=== PATIENT | male | born 1970 | race Caucasian/White ===

== ENCOUNTER 2016-11-03 07:11 | Emergency (ER) | payer OTHER, MEDICARE ==
[~2016-11-03] VITALS: Ht 160 cm; Wt 71.7 kg
[~2016-11-03 07:11] MED LIST: ALPRAZOLAM0.5 M3 PO; ALPRAZOLAM0.5 M4 PO; ALPRAZOLAM1 MG PO; AMLODIPINE BESYL5 M1 PO; ATIVAN1 MG PO; B12-METHYL1000 MCG PO; CELEBREX200 M1 PO; CEPHALEXIN500 M3 PO; CIPRO 500MG (E500 MG PO; CIPROFLOXACIN IV; CLEOCIN HCL300 MG PO; CLONIDINE0.1 MG PO; DAILY MULTIPLE1 EACH PO; DIAZEPAM5 M1 PO; DILAUDID2 MG PO; FAMOTIDINE20 MG PO; FLOMAX(MONOGRA0.4 MG PO; FOLIC ACID 1 MG PO; FOLIC ACID1 M1 PO; GABAPENTIN300 M2 PO; HYDRODIURIL 112.5 M1 PO; HYDRODIURIL 2525 MG PO; HYDROXYZINE50 MG PO; K-TAB ER10 MEQ PO; KLOR-CON M1010 ME1; MAG-OX 400400 MG PO; MAGNESIUM OXID400 M1 PO; MAGNESIUM500 M2 PO; MEDROL4 M2 PO; MULTIVITAMIN1 TAB PO; NAPRELAN 500500 MG PO; NAPROSYN 500 M500 MG PO; NICODERM C21 MG/24 H TOP; OMEPRAZOLE40 MG PO; ONDANSETRON HYDR4 MG PO; OXYCODONE HCL15 M1 PO; OXYCODONE HCL20 M2 PO; OXYCODONE HYDRO15 MG PO; OXYCODONE5 M1 PO; OXYCONTIN40 M1 PO; Orajel TOP; PEPCID20 MG PO; PERCOCET 325 MG1 TA2 PO; PHARMASSURE MA500 MG PO; PHENERGAN25 M1 PO; PRILOSEC 20MG C20 MG PO; ROXICODONE15 M1 PO; SKELAXIN800 MG PO; TORADOL10 MG PO; TRAMADOL50 MG PO; TRAZODONE50 MG PO; TUMS200 MG PO; Theragran Vitamins PO; VALIUM10 M1 PO; VITAMIN B PO; VITAMIN B-1100 MG PO; VITAMIN B-12100 MC1; VITAMIN B-121000 MC3 PO; XANAX0.5 M1 PO; ZOFRAN 4 MG TABL4 MG PO; ZOFRAN ODT4 MG PO; ZOFRAN4 M1 SL; ZOSYN 4.54.5 GM/100 IV
--- NOTE | 2016-11-03 08:00 | ED GI/GU/ABDOMINAL COMPLAINT ---
History of Present Illness General Chief Complaint: Abdominal Pain/Flank Pain Stated Complaint: L FLANK PAIN Source: patient, old records Exam Limitations: no limitations Vital Signs & Intake/Output Vital Signs & Intake/Output Vital Signs Date Time Temp Pulse Resp B/P Pulse O2 O2 Flow FiO2 Ox Delivery Rate 11/03 1011 97.9 74 18 119/80 95 11/03 0930 Room Air Room Air ED Intake and Output 11/04 0000 11/03 1200 Intake Total Output Total Balance Patient 158 lb Weight Allergies Coded Allergies: venom-honey bee (BEE VENOM (HONEY BEE)) (ANAPHYLAXIS 04/12/16) Reconcile Medications Alprazolam (Xanax) 0.5 MG TABLET 1 TAB PO BIDP PRN ANXIETY (Reported) Alprazolam 0.5 MG TABLET 1 TAB PO BID PRN ANXIETY (Reported) Amlodipine Besylate 5 MG TABLET 1 TAB PO DAILY BLOOD PRESSURE Calcium Carbonate (TUMS) 200 MG TAB.CHEW 2 TAB PO Q4 GERD (Reported) [CIPROFLOXACIN] 400 MG IV.SOLN 400 MG IV Q12H INFECTION START DATE 04/20, FOR A TOTAL OF 8 WEEKS Cyclobenzaprine HCl 10 MG TABLET 1 TAB PO TID PRN SPASM Diazepam 5 MG TABLET 1 TAB PO Q8H PRN MUSCLE SPASMS (Reported) Folic Acid 1 MG TABLET 1 TAB PO DAILY SUPPLEMENT Gabapentin 300 MG CAPSULE 1 CAP PO AD UNKNOWN (Reported) Magnesium Oxide 400 MG TABLET 1 TAB PO DAILY HYPOMAGNESEMIA Methylcobalamin ([id number]) 1,000 MCG CAP 1 CAP PO DAILY SUPPLEMENT Multivitamin (Daily Multiple Vitamin) 1 EACH TABLET 1 TAB PO DAILY HEALTH SUPPLEMENT (Reported) Oxycodone HCl 15 MG TABLET 1-2 TAB PO Q4P pain Xapjimjxzrqc-Hwuj-Edadlenc,Iso (Zosyn 4.5 Gm/100 Ml Galaxy Bag) 4.5 GM/100 ML FROZ.PIGGY 4.5 GM IV Q6H INFECTION Potassium Chloride (K-Tab ER) 10 MEQ TABLET.ER 1 TAB PO DAILY SUPPLEMENT Thiamine HCl (Vitamin B-1) 100 MG TABLET 1 TAB PO DAILY SUPPLEMENT Triage Note: TRIAGE: 45 Y/O MALE PRESENTS C/O 04/07 LEFT SIDED KIDNEY PAIN, "LIKE SOMEONE KICKED ME". "I'M INCONTINENT AFTER MY SURGERY. I WONDER IF I HAVE KIDNEY INFECTION." Triage Nurses Notes Reviewed? yes Onset: Abrupt Duration: day(s): (2) Timing: multiple episodes today Quality/Severity: sharpness, severe Severity Numbers: 10 Location: left flank Radiation: no radiation HPI: 45 year-old male with history of back fusion in February and March 2016 presents to ER chief complaint of severe left-sided flank pain started 1-1/2 days ago. He denies any trauma or fever. Some nausea and vomiting. He states he thinks there is something wrong with his kidney. Patient is incontinent after his back surgeries. He wears a diaper secondary to incontinence. Denies any blood in the urine. Denies any change in his stool. Today he took his prescription for oxycodone without any relief this morning. Past History Travel History Traveled to [place] past 21 day No Medical History Any Pertinent Medical History? see below for history Neurological: NONE EENT: NONE Cardiovascular: hypertension, ATYPICAL CHEST PAIN Respiratory: NONE Gastrointestinal: pancreatitis, gastritis Hepatic: NONE Renal: nephrolithiasis Musculoskeletal: chronic back pain, disk herniation Psychiatric: alcohol dependence, anxiety, PAIN MANAGEMENT PAIENT. Endocrine: NONE Blood Disorders: NONE Cancer(s): NONE DESIGN MANAGER/Reproductive: NONE History of MRSA: No History of VRE: No History of CDIFF: No Pneumonia Vaccine: 12/11/11 Surgical History Surgical History: BACK SURGERIES (2006, 2007) APENDECTOMY A CHILD Psychosocial History Who do you live with Spouse Services at Home None What is your primary language Gabonese Tobacco Use: Current Daily Use Daily Tobacco Use Amount/Type: => 5 Cigarettes daily ETOH Use: occasional use Illicit Drug Use: marijuana Family History Family History, If Any: FATHER (strokes X2used to be heavy drinker, now stopped). MOTHER (myocardial infarction). . BROTHER (heavy drinker). Hx Contributory? No Review of Systems Review of Systems Constitutional: Denies: chills, fever. EENTM: Reports: no symptoms. Respiratory: Denies: cough, short of breath. Cardiovascular: Denies: chest pain. GI: Reports: nausea, vomiting. Genitourinary: Reports: see HPI (incontinence). Musculoskeletal: Reports: back pain. Skin: Reports: no symptoms. Neurological/Psychological: Reports: no symptoms. Hematologic/Endocrine: Reports: polyuria. Denies: bruising, bleeding, polydipsia. Immunologic/Allergic: Denies: splenectomy. All Other Systems: Reviewed and Negative Physical Exam Physical Exam General Appearance: well developed/nourished, alert, awake, anxious, mild distress, moderate distress Head: atraumatic, normal appearance Eyes: Bilateral: normal appearance, PERRL, EOMI. Ears, Nose, Throat, Mouth: hearing grossly normal, moist mucous membrane Neck: normal inspection, supple, full range of motion Respiratory: normal breath sounds, chest non-tender, no respiratory distress Cardiovascular: regular rate/rhythm Peripheral Pulses: 2+ radial (R), 2+ radial (L) Gastrointestinal: normal bowel sounds, soft, non-tender Male Genitals: normal genitalia Back: CVA tenderness (L) Extremities: normal range of motion Neurologic/Psych: awake, alert, oriented x 3, anxious Skin: intact, normal color, warm/dry Core Measures ACS in differential dx? No Severe Sepsis Present: No Septic Shock Present: No Progress Differential Diagnosis: pyelonephritis, ureterolithiasis, UTI/pyelo, SCIATICA, FUSION, LUMBAR RADICULOPATHY Plan of Care: Laboratory Tests 11/03/16 0937: Urine Opiates Screen > 4000.00 H, Methadone Screen < 40, Barbiturate Screen < 60, Ur Phencyclidine Scrn < 6.00, Amphetamines Screen < 100, U Benzodiazepines Scrn > 800 H, Urine Cocaine Screen < 50, Urine Cannabis Screen < 5.00, Urinalysis MOD H, Urine Color YEL, Urine Clarity HAZY H, Urine pH 6.0, Ur Specific [place] >= 1.030, Urine Protein TRACE H, Urine Ketones NEG, Urine Nitrite NEG, Urine Bilirubin NEG, Urine Urobilinogen 0.2, Ur Leukocyte Esterase NEG, Ur Microscopic SEDIMENT EXAMINED, Urine RBC RARE, Urine WBC 3-5 H, Ur Epithelial Cells MOD H, Urine Bacteria FEW H, Hyaline Casts 1-3 H, Granular Casts RARE H, Urine Mucus FEW, Urine Hemoglobin NEG, Urine Glucose NEG 11/03/16 0825: Anion Gap 14, Estimated GFR > 60, BUN/Creatinine Ratio 10.8, Glucose 95, Calcium 9.4, Total Bilirubin 0.7, AST 86 H, ALT 64, Alkaline Phosphatase 123, Total Protein 7.8, Albumin 4.5, Globulin 3.3, Albumin/Globulin Ratio 1.4, CBC w Diff NO MAN DIFF REQ, RBC 4.31 L, MCV 98.0 H, MCH 33.2 H, RDW 14.5, MPV 7.8, Gran % 58.8, Lymphocytes % 27.1, Monocytes % 11.7 H, Eosinophils % 2.1, Basophils % 0.3, Absolute Granulocytes 4.6, Absolute Lymphocytes 2.1, Absolute Monocytes 0.9 H, Absolute Eosinophils 0.2, Absolute Basophils 0, PUBS MCHC 33.9 LABS, CT, TORADODL, VALIUM IV NO RELIEF WITH TORADOL. IV MORPHINE GIVEN. CT RESULTS PENDING. CT DOES NOT REVEAL ANY ACUTE PATHOLOGY. PATIENT REQUESTING MORE PAIN MEDICATIONS AND TOLD HE WILL HAVE TO FOLLOW UP WITH HIS PAIN MANAGEMENT. (HARRISON ESCOBEDO,BHASKAR) Diagnostic Imaging: Viewed by Me: CT Scan. Discussed w/RAD: CT Scan. Radiology Impression: PATIENT: JONATHAN DOUGHERTY PRESENT AGE : 45 PATIENT ACCOUNT NO: [id number] : 68 LOCATION: [facility] ORDERING PHYSICIAN: BHASKAR TERRY MD SERVICE DATE: 11/03/16 EXAM TYPE: CAT - CT ABD & PELVIS W/O IV CONTRAS EXAMINATION: CT ABDOMEN AND PELVIS WITHOUT CONTRAST CLINICAL INFORMATION: Severe left flank pain. COMPARISON: CT dated 05/30/2015 and MRI dated 07/04/2016 TECHNIQUE: Multidetector volumetric imaging was performed from the superior aspect of the liver through the pubic symphysis. Sagittal and coronal reformatted images were obtained on the technologist's workstation. DLP: 308 mGy-cm FINDINGS: LUNG BASES: The visualized lung bases are unremarkable. LIVER, GALLBLADDER, AND BILIARY TREE: Relative hypoattenuation of the hepatic parenchyma relative to the spleen is consistent with steatosis. No focal hepatic lesions are identified. Liver is normal in size. No biliary ductal dilatation. The gallbladder is unremarkable with no evidence of radiopaque gallstones, gallbladder wall thickening, or obvious pericholecystic inflammatory changes. PANCREAS: Unremarkable. SPLEEN: Unremarkable. ADRENAL GLANDS: Unremarkable. KIDNEYS AND URETERS: The kidneys are normal in size, shape, and attenuation. No hydronephrosis, hydroureter, or calculi seen. There is mild chronic bilateral perinephric stranding. Ureters are unremarkable. No ureteral calculi. BLADDER: Decompressed and normal. GASTROINTESTINAL TRACT: Stomach, small bowel, and colon are normal in caliber. No bowel wall thickening. Appendix is not seen, there are no inflammatory changes are identified in the right lower quadrant suggest acute appendicitis. Large peritoneal free fluid or free air. ABDOMINAL WALL: No significant hernia is appreciated. LYMPH NODES: Normal. VASCULAR: Unremarkable. PELVIC VISCERA: The prostate and seminal vesicles are unremarkable. OSSEOUS STRUCTURES: Postsurgical changes of posterior osseous fusion and decompression are evident at L4-L5. Ill-defined, heterogeneous soft tissue is present throughout the paraspinal region posteriorly in the region of the previously seen abscess. Sensitivity for residual or recurrent collections in this region is limited on this CT. There is osseous fusion of the L5-S1 vertebral bodies as well as osseous fusion of the transverse processes of L4-S1. Degenerative disc disease is present in the thoracolumbar spine with retrolisthesis of L3 on L4 by 2 mm. IMPRESSION: 1. No acute intra-abdominal or intrapelvic abnormalities. No nephrolithiasis or hydronephrosis. 2. Hepatic steatosis. 3. Chronic postsurgical changes of prior posterior decompression and fusion at L4- S1 with residual heterogeneous soft tissue density within the posterior epidural and paraspinal soft tissues in this region. Sensitivity for residual or recurrent collections is limited on the CT. DICTATED BY: LASHON QUARLES MD DATE/TIME DICTATED:11/03/16850 CHIEF CLOTH FINISHING RANGE OPERATOR:GINA DATE/TIME TRANSCRIBED:11/03/16850 CONFIDENTIAL, DO NOT COPY WITHOUT APPROPRIATE AUTHORIZATION. <Electronically signed in Other Vendor System> SIGNED BY: LASHON QUARLES MD 11/03/16 0911 Initial ED EKG: none Departure Departure Time of Disposition: 1016 Disposition: HOME OR SELF CARE Condition: Stable Clinical Impression Primary Impression: Left flank pain Referrals: OLGA ESCOBEDO,SIERRA (PCP/Family) KYLER BACA MD Additional Instructions: Please follow up with primary care doctor in the office. Continue your perception pain medications. Departure Forms: Customer Survey General Discharge Information Prescriptions: Current Visit Scripts Cyclobenzaprine HCl 1 TAB PO TID PRN SPASM #20 TAB
[2016-11-03 08:42] LABS: ABSOLUTE BASOPHIL COUNT 0 /CUMM (0.0-0.2); ABSOLUTE EOSINOPHIL COUNT 0.2 /CUMM (0.0-0.7); ABSOLUTE GRANULOCYTE CT 4.6 /CUMM (1.4-6.5); ABSOLUTE LYMPH COUNT 2.1 /CUMM (1.2-3.4); ABSOLUTE MONOCYTE COUNT 0.9 /CUMM (0.10-0.60); BASOPHIL % 0.3 % (0.0-2.0); EOSINOPHIL % 2.1 % (0-5); GRANULOCYTE % 58.8 % (42.2-75.2); HEMATOCRIT 42.3 % (42-52); MEAN CORPUSCULAR HGB 33.2 PG (27.0-31.0); MEAN CORPUSCULAR HGB CONC 33.9 G/DL (33.0-37.0); MEAN PLATELET VOLUME 7.8 FL (7.4-10.4); PLATELET COUNT 155 /CUMM (130-400); RBC DISTRIBUTION WIDTH 14.5 % (11.5-14.5); RED BLOOD CELL CT 4.31 /CUMM (4.70-6.10); WHITE BLOOD CELL COUNT 7.8 /CUMM (4.8-10.8)
--- NOTE | 2016-11-03 09:11 | CT SCAN REPORT ---
EXAMINATION: CT ABDOMEN AND PELVIS WITHOUT CONTRAST CLINICAL INFORMATION: Severe left flank pain. COMPARISON: CT dated 05/30/2015 and MRI dated 07/04/2016 TECHNIQUE: Multidetector volumetric imaging was performed from the superior aspect of the liver through the pubic symphysis. Sagittal and coronal reformatted images were obtained on the technologist's workstation. DLP: 308 mGy-cm FINDINGS: LUNG BASES: The visualized lung bases are unremarkable. LIVER, GALLBLADDER, AND BILIARY TREE: Relative hypoattenuation of the hepatic parenchyma relative to the spleen is consistent with steatosis. No focal hepatic lesions are identified. Liver is normal in size. No biliary ductal dilatation. The gallbladder is unremarkable with no evidence of radiopaque gallstones, gallbladder wall thickening, or obvious pericholecystic inflammatory changes. PANCREAS: Unremarkable. SPLEEN: Unremarkable. ADRENAL GLANDS: Unremarkable. KIDNEYS AND URETERS: The kidneys are normal in size, shape, and attenuation. No hydronephrosis, hydroureter, or calculi seen. There is mild chronic bilateral perinephric stranding. Ureters are unremarkable. No ureteral calculi. BLADDER: Decompressed and normal. GASTROINTESTINAL TRACT: Stomach, small bowel, and colon are normal in caliber. No bowel wall thickening. Appendix is not seen, there are no inflammatory changes are identified in the right lower quadrant suggest acute appendicitis. Large peritoneal free fluid or free air. ABDOMINAL WALL: No significant hernia is appreciated. LYMPH NODES: Normal. VASCULAR: Unremarkable. PELVIC VISCERA: The prostate and seminal vesicles are unremarkable. OSSEOUS STRUCTURES: Postsurgical changes of posterior osseous fusion and decompression are evident at L4-L5. Ill-defined, heterogeneous soft tissue is present throughout the paraspinal region posteriorly in the region of the previously seen abscess. Sensitivity for residual or recurrent collections in this region is limited on this CT. There is osseous fusion of the L5-S1 vertebral bodies as well as osseous fusion of the transverse processes of L4-S1. Degenerative disc disease is present in the thoracolumbar spine with retrolisthesis of L3 on L4 by 2 mm. IMPRESSION: 1. No acute intra-abdominal or intrapelvic abnormalities. No nephrolithiasis or hydronephrosis. 2. Hepatic steatosis. 3. Chronic postsurgical changes of prior posterior decompression and fusion at L4- S1 with residual heterogeneous soft tissue density within the posterior epidural and paraspinal soft tissues in this region. Sensitivity for residual or recurrent collections is limited on the CT.
[2016-11-03 10:11] VITALS: BP 119/80
[2016-11-03] MEDS ORDERED: CYCLOBENZAPRINE10 M1 PO (10:30)
== END 2016-11-03 10:36 ==
LOC: ERH 07:11
PROVIDERS: Emergency Medicine
DX: R10.32 Left lower quadrant pain (principal)
CPT/HCPCS: 74176; 80307; 81001; 96374; 96375; J1885; J3360

== ENCOUNTER 2017-01-26 14:18 | Emergency (ER) | payer OTHER, MEDICARE ==
[~2017-01-26] VITALS: Ht 157.5 cm; Wt 68.9 kg
[~2017-01-26 14:18] MED LIST changes: +CYCLOBENZAPRINE10 M1 PO
[2017-01-26 14:24] VITALS: BP 138/77
--- NOTE | 2017-01-26 15:18 | ED GENERAL ADULT ---
History of Present Illness General Chief Complaint: Abdominal Pain/Flank Pain Stated Complaint: SHARP PAIN RT SIDE, WEAKNESS Source: patient, old records Exam Limitations: no limitations Vital Signs & Intake/Output Vital Signs & Intake/Output Vital Signs Date Time Temp Pulse Resp B/P B/P Pulse O2 O2 Flow FiO2 Mean Ox Delivery Rate 01/26 1553 99 Room Air 01/26 1424 98.2 113 15 138/77 96 Room Air Room Air Allergies Coded Allergies: venom-honey bee (BEE VENOM (HONEY BEE)) (ANAPHYLAXIS 01/26/17) Reconcile Medications Alprazolam 0.5 MG TABLET 1 TAB PO BID PRN ANXIETY (Reported) Amlodipine Besylate 5 MG TABLET 1 TAB PO DAILY BLOOD PRESSURE Celecoxib 200 MG CAPSULE 1 CAP PO DAILY PAIN (Reported) Cyanocobalamin (Vitamin B-12) 1,000 MCG TABLET 1 TAB PO DAILY SUPPLEMENT ( Reported) Diclofenac Sodium (Voltaren) 1 % GEL..GRAM. 1 GM TOP PRN PAIN (Reported) apply to affected area(s) Folic Acid 1 MG TABLET 1 TAB PO DAILY SUPPLEMENT Magnesium Oxide (Magnesium) 400 MG CAPSULE 1 CAP PO DAILY SUPPLEMENT ( Reported) Multivitamin (Daily Multiple Vitamin) 1 EACH TABLET 1 TAB PO DAILY HEALTH SUPPLEMENT (Reported) Ondansetron (Zofran Odt) 4 MG TAB.RAPDIS 1 TAB SL TID PRN nausea Oxycodone HCl 15 MG TABLET 1-2 TAB PO Q4-6H PRN PAIN (Reported) Pantoprazole Sodium 40 MG TABLET.DR 1 TAB PO DAILY GI (Reported) Potassium Chloride (K-Tab ER) 10 MEQ TABLET.ER 1 TAB PO DAILY SUPPLEMENT Thiamine HCl (Vitamin B-1) 100 MG TABLET 1 TAB PO DAILY SUPPLEMENT Triage Note: PT TO ED FOR DIFFUSE ABD PAIN, AND LOW BACK PAIN AND R LEG PAIN THAT STARTED A COUPLE OF DAYS AGO. +NAUSEA. HOME PAIN MEDICATIONS AREN'T HELPING. LAST BM THIS AM. Triage Nurses Notes Reviewed? yes Onset: Gradual Duration: day(s): Timing: recent history Severity: moderate HPI: 46-year-old male presents to emergency department complaining of generalized abdominal pain 3 days. Patient states that for the past few days he's been feeling weak, nausea, bilious vomiting 5-6 episodes per day. The patient states that he has a history of lumbar spine surgery 02/2016 following which she had bowel and bladder incontinence with numbness of his lower back groin and legs. He takes milk of magnesia to aid in passing stool. He does not have regular bowel movements without this, last bowel movement was this morning and loose. He has also been on chronic narcotics for pain management for the past 9 years. He says his pain medications do not relieve his abdominal pain. He was seen here in October complaining of kidney stones, his CT was negative at that time. He is also been feeling hot and cold at home however did not record any temperature. He's been to several specialists for his incontinence including his previous neurosurgeon, he has an appointment with a new neurosurgeon [place] for next week. He states his urine is usually bright yellow however today there is a red color to it. (GÉNESIS JORGE PA-C) Past History Travel History Traveled to [place] past 21 day No Medical History Any Pertinent Medical History? see below for history Neurological: NONE EENT: NONE Cardiovascular: hypertension, ATYPICAL CHEST PAIN Respiratory: NONE Gastrointestinal: pancreatitis, gastritis Hepatic: NONE Renal: nephrolithiasis Musculoskeletal: chronic back pain, disk herniation Psychiatric: alcohol dependence, anxiety, PAIN MANAGEMENT PAIENT. Endocrine: NONE Blood Disorders: NONE Cancer(s): NONE MANAGER PLACEMENT/Reproductive: NONE History of MRSA: No History of VRE: No History of CDIFF: No Surgical History Surgical History: BACK SURGERIES (2006, 2007) APENDECTOMY A CHILD Psychosocial History Who do you live with Spouse Services at Home None What is your primary language Estonian Tobacco Use: Current Daily Use Daily Tobacco Use Amount/Type: => 5 Cigarettes daily ETOH Use: occasional use Illicit Drug Use: denies illicit drug use Family History Family History, If Any: FATHER (strokes X2used to be heavy drinker, now stopped). MOTHER (myocardial infarction). . BROTHER (heavy drinker). Hx Contributory? No (GÉNESIS JORGE PA-C) Review of Systems Review of Systems Constitutional: Reports: see HPI. EENTM: Reports: no symptoms. Respiratory: Reports: no symptoms. Cardiovascular: Reports: no symptoms. GI: Reports: see HPI. Genitourinary: Reports: see HPI. Musculoskeletal: Reports: see HPI. Skin: Reports: no symptoms. Neurological/Psychological: Reports: see HPI. Hematologic/Endocrine: Reports: no symptoms. Immunologic/Allergic: Reports: no symptoms. All Other Systems: Reviewed and Negative (GÉNESIS JORGE PA-C) Physical Exam Physical Exam General Appearance: well developed/nourished, no apparent distress, alert, awake Comments: Well-developed well-nourished person in no acute distress HEENT: Normal EENT exam;, EOMI, HEAD is atraumatic. Neck: Supple, normal range of motion without pain or tenderness Back: Nontender, no CVA tenderness. Full range of motion Cardiovascular: Tachycardia, no murmurs rubs or gallops, normal JVP Respiratory: No respiratory distress. Patient speaking in full complete sentences. Breath sounds clear to auscultation bilaterally: NO W/R/R Abdomen: Soft, Tenderness RUQ and LUQ, no rebound, no gaurding, nondistended, no appreciable organomegaly. Normal bowel sounds. No rebound/guarding, No appreciable enlargement of the abdominal aorta, No ascites. Extremity: No edema, full range of motion of extremities, Neuro: Alert oriented x3, motor sensory normal, There were no obvious focal neurologic abnormalities. Skin: No appreciable rash on exposed skin, skin is warm and dry. Psych: Mood and affect is normal, memory and judgment is normal. Core Measures ACS in differential dx? No CVA/TIA Diagnosis: No Severe Sepsis Present: No Septic Shock Present: No (GÉNESIS JORGE PA-C) Progress Differential Diagnoses I considered the following diagnoses in my evaluation of the patient: [ cholecystitis, pancreatitis, appendicitis, diverticulitis, SBO, gastritis] Plan of Care: Orders Procedure Date/time Status LIPASE 01/26 1526 Complete COMPREHENSIVE METABOLIC PANEL 01/26 1526 Complete CBC WITHOUT DIFFERENTIAL 01/26 1526 Complete AMYLASE 01/26 1526 Complete Laboratory Tests 01/26/17 1541: Anion Gap 19 H, Estimated GFR > 60, BUN/Creatinine Ratio 14.2, Glucose 102 H, Calcium 10.8 H, Total Bilirubin 1.2, AST 97 H, ALT 103 H, Alkaline Phosphatase 132 H, Total Protein 9.3 H, Albumin 5.6 H, Globulin 3.7, Albumin/ Globulin Ratio 1.5, Amylase 79, Lipase 414 H, CBC w Diff NO MAN DIFF REQ, RBC 4.76, MCV 99.5 H, MCH 34.2 H, RDW 13.3, MPV 8.1, Gran % 73.6, Lymphocytes % 17.6 L, Monocytes % 8.1, Eosinophils % 0.5, Basophils % 0.2, Absolute Granulocytes 10.0 H, Absolute Lymphocytes 2.4, Absolute Monocytes 1.1 H, Absolute Eosinophils 0.1, Absolute Basophils 0, PUBS MCHC 34.4 CT scan shows no acute abnormality. Low density present and liver representing possible fatty changes, patient has a history of alcoholism. Labs reveal leukocytosis, elevated lipase at 414 was elevated compared to last recording a year ago in the 80s. Additionally elevated liver enzymes. These lab findings were discussed with Dr. Adkins. 17:30 - patient was informed of CT scan results and his elevated lipase blood levels indicating probable acute pancreatitis. It was recommended that he remain in the hospital for IV fluids and further monitoring however patient wishes to return home and increase his by mouth fluid intake. He states that he had pancreatitis many years ago and was able to manage well at home with by mouth fluids. He states that IV Zofran decreased his nausea. The patient was discussed with Dr. Adkins. He will go home with a prescription for by mouth Zofran, increase his fluid intake, and return with any worsening abdominal pain, nausea, vomiting, or concerns. Upon discharge he was nontoxic appearing, in no acute distress. (ANIA HAYWARD,GÉNESIS) Diagnostic Imaging: Viewed by Me: CT Scan. Discussed w/RAD: CT Scan. Radiology Impression: PATIENT: JONATHAN DOUGHERTY PRESENT AGE : 46 PATIENT ACCOUNT NO: [id number] : 68 LOCATION: [facility] ORDERING PHYSICIAN: GÉNESIS JORGE PA-C SERVICE DATE: 01/26/17 EXAM TYPE: CAT - CT ABD & PELVIS W IV CONTRAST EXAMINATION: CT ABDOMEN AND PELVIS WITH CONTRAST CLINICAL INFORMATION: Generalized abdominal pain with nausea and vomiting COMPARISON: 11/03/2016 TECHNIQUE: Multidetector volumetric imaging was performed of the abdomen and pelvis before and after the IV administration of 100 mL of Omnipaque 300 intravenous contrast. Sagittal and coronal reformatted images were obtained on the technologist's workstation. FINDINGS: Lung bases are grossly clear. Upper abdomen Low-density liver may be fatty change. Hepatitis cannot be excluded. Spleen is within normal limits. Region the pancreas is unremarkable. The adrenal glands are within normal limits. There is no bulky adenopathy here. No free fluid. Mild prominence of the common duct once again seen. Bowel pattern is nonobstructing. No bulky adenopathy. The kidneys are in the early nephrographic phase. Small area of nonenhancement lower pole left kidney likely represents a small evolving cyst. Aorta is normal in caliber. In the pelvis no free fluid. No evidence for adenopathy. No suspicious fluid collection. Status post surgical change in the lower lumbar region. Correlation recommended here clinically. A normal appendix is not seen but there is no definitive suspicion around the cecum. IMPRESSION: No acute finding. The bowel pattern is within normal limits. No suspicious fluid collection. Low-density in liver may be fatty change. Hepatitis cannot be excluded. DICTATED BY: SILVA NANCE MD DATE/TIME DICTATED:01/26/171638 CARE PARTNER:GINA DATE/TIME TRANSCRIBED:1638 CONFIDENTIAL, DO NOT COPY WITHOUT APPROPRIATE AUTHORIZATION. < Electronically signed in Other Vendor System> SIGNED BY: SILVA NANCE MD 01/26/17 1651 Initial ED EKG: none (GÉNESIS JORGE PA-C) Departure Departure Disposition: HOME OR SELF CARE Condition: Stable Clinical Impression Primary Impression: Pancreatitis, acute Secondary Impressions: Nausea & vomiting Referrals: OLGA ESCOBEDO,SIERRA (PCP/Family) Additional Instructions: Drink pleanty of clear liquids. Take Zofran as prescribed as need for nausea. Take Melatonin over the counter to aid in your sleeping. Call your primary care doctor to inform them that you were seen and evaluated here today and the results of your blood work. Return with any worsening symptoms or concerns including worsening abdomenal pain, vomiting, fevers, chills. Departure Forms: Customer Survey General Discharge Information Prescriptions: Current Visit Scripts Ondansetron (Zofran Odt) 1 TAB SL TID PRN nausea #15 TAB (GÉNESIS JORGE PA-C) PA/CAKE ICER Co-Sign Statement Statement: ED Attending supervision documentation- [X] I saw and evaluated the patient. I have also reviewed all the pertinent lab results and diagnostic results. I agree with the findings and the plan of care as documented in the PA's/CAKE ICER's documentation. [X] I have reviewed the ED Record and agree with the PA's/CAKE ICER's documentation. [] Additions or exceptions (if any) to the PAs/CAKE ICER's note and plan are summarized below: [] (RAZA ESCOBEDO,AUREA Newton) Critical Care Note Critical Care Note Critical Care Time: non-applicable (ANIA HAYWARD,GÉNESIS)
[2017-01-26 15:55] LABS: ABSOLUTE BASOPHIL COUNT 0 /CUMM (0.0-0.2); ABSOLUTE EOSINOPHIL COUNT 0.1 /CUMM (0.0-0.7); ABSOLUTE LYMPH COUNT 2.4 /CUMM (1.2-3.4); ABSOLUTE MONOCYTE COUNT 1.1 /CUMM (0.10-0.60); BASOPHIL % 0.2 % (0.0-2.0); EOSINOPHIL % 0.5 % (0-5); GRANULOCYTE % 73.6 % (42.2-75.2); HEMATOCRIT 47.4 % (42-52); MEAN CORPUSCULAR HGB 34.2 PG (27.0-31.0); MEAN CORPUSCULAR HGB CONC 34.4 G/DL (33.0-37.0); MEAN CORPUSCULAR VOLUME 99.5 FL (80.0-94.0); MEAN PLATELET VOLUME 8.1 FL (7.4-10.4); PLATELET COUNT 157 /CUMM (130-400); RBC DISTRIBUTION WIDTH 13.3 % (11.5-14.5); RED BLOOD CELL CT 4.76 /CUMM (4.70-6.10); WHITE BLOOD CELL COUNT 13.6 /CUMM (4.8-10.8)
[2017-01-26] MEDS ORDERED: OXYCODONE HCL15 M1 PO (16:51)
--- NOTE | 2017-01-26 16:51 | CT SCAN REPORT ---
EXAMINATION: CT ABDOMEN AND PELVIS WITH CONTRAST CLINICAL INFORMATION: Generalized abdominal pain with nausea and vomiting COMPARISON: 11/03/2016 TECHNIQUE: Multidetector volumetric imaging was performed of the abdomen and pelvis before and after the IV administration of 100 mL of Omnipaque 300 intravenous contrast. Sagittal and coronal reformatted images were obtained on the technologist's workstation. FINDINGS: Lung bases are grossly clear. Upper abdomen Low-density liver may be fatty change. Hepatitis cannot be excluded. Spleen is within normal limits. Region the pancreas is unremarkable. The adrenal glands are within normal limits. There is no bulky adenopathy here. No free fluid. Mild prominence of the common duct once again seen. Bowel pattern is nonobstructing. No bulky adenopathy. The kidneys are in the early nephrographic phase. Small area of nonenhancement lower pole left kidney likely represents a small evolving cyst. Aorta is normal in caliber. In the pelvis no free fluid. No evidence for adenopathy. No suspicious fluid collection. Status post surgical change in the lower lumbar region. Correlation recommended here clinically. A normal appendix is not seen but there is no definitive suspicion around the cecum. IMPRESSION: No acute finding. The bowel pattern is within normal limits. No suspicious fluid collection. Low-density in liver may be fatty change. Hepatitis cannot be excluded.
[2017-01-26] MEDS ORDERED: VITAMIN B-121000 MC3 PO (16:52)
[2017-01-26] MEDS ORDERED: PANTOPRAZOLE SO40 M1 PO (16:53)
[2017-01-26] MEDS ORDERED: MAGNESIUM400 M1 PO (16:53)
[2017-01-26] MEDS ORDERED: CELECOXIB200 M1 PO (16:54)
[2017-01-26] MEDS ORDERED: VOLTAREN100 GM TOP (16:54)
[2017-01-26] MEDS ORDERED: ZOFRAN ODT4 M1 SL (17:20)
== END 2017-01-26 17:32 ==
LOC: ERH 14:18
PROVIDERS: Physician Assistant
DX: K85.90 Acute pancreatitis without necrosis or infection, unspecified (principal)
CPT/HCPCS: 74177; 96374; J2405